=== PATIENT | female | born 1965 | race Caucasian/White ===

== ENCOUNTER 2022-09-07 15:49 | Outpatient (CLI) | payer BC, SELFPAY ==
--- NOTE | 2022-09-07 16:00 | CRLHL7_ITS ---
For Patients: As a result of the Century Cures Act, medical imaging exams and procedure reports are released immediately into your electronic medical record. You may view this report before your referring provider. If you have questions, please contact your health care provider. Indication: Evaluate fracture Technique: Noncontrast CT right ankle Please note that all CT scans at this facility use dose modulation, iterative reconstruction, and/or weight-based dosing when appropriate to reduce radiation dose to as low as reasonably achievable. Comparison: X-rays 08/27/2022 Findings: There is a displaced obliquely orientated fracture of the distal fibular diametaphysis with up to 5 millimeters of diastasis at the fracture site. Slight posterior displacement of the distal fracture fragment noted. In addition, there is a displaced and comminuted intra-articular fracture of the posterior distal tibia with up to 2.5 millimeters of articular surface impaction extending over a distance of 6 millimeters. There is also suspicion of an avulsion fracture at the anterior aspect at the tip of the medial malleolus. Multiple chronic appearing densities are present adjacent to the tip of the medial malleolus and adjacent to the medial aspect of the talus. Mild mortise widening is present. No osteochondral defect of the talar dome. Subtalar joint is maintained. No calcaneal fracture. Small posterior calcaneal spur noted. Soft tissue swelling. Impression: Displaced intra-articular fracture of the posterior distal tibial metaphysis with articular surface impaction. Displaced obliquely oriented fracture of the distal fibula. Mild widening of the mortise. Possible avulsion fracture at the anterior tip of the medial malleolus. Please note that all CT scans at this facility use dose modulation, iterative reconstruction, and/or weight-based dosing when appropriate to reduce radiation dose to as low as reasonably achievable. Dictated by Anjel Ricketts MD @ 09/08/2022 9:56:52 AM (Electronically Signed)
== END 2022-09-07 15:50 | disposition home or self-care (01) ==
LOC: CT 15:54
PROVIDERS: PCP Physician Assistant Surgical; Visit Provider Physician Assistant Surgical
DX: S82.843A Displaced bimalleolar fracture of unspecified lower leg, initial encounter for closed fracture (principal); S82.491A Other fracture of shaft of right fibula, initial encounter for closed fracture
CPT/HCPCS: 73700